=== PATIENT | female | born 1955 | race Caucasian/White ===

== ENCOUNTER → 2017-04-03 | Outpatient (CLI) | payer OTHER ==
[~2017-04-03] MED LIST: ALBU3IS INH; ALBU90OI6 INH; ATOR40TA PO; AZIT500 PO; Ambien5 MG PO; BUDE6HFA INH; DELTASONE20 MG PO; Desyrel50 MG PO; ESCI20 PO; GUAI600T33 PO; IPRAOI; LEVSOD50 PO; LORA.5 PO; LORA2 PO; METPRE4 PO; NICO14TP TOP; Nicorette4 MG BC; Prednisone20 MG PO; ROSU5; SERT25 PO; Synthroid112 MCG PO; TIOT18 INH; TRAZ150T57 PO; TUDORZA PRESS400 MCG IH; TUDORZA PRESS400 MCG INH
[2017-04-03 18:37] LABS: Free Thyroxine 1.46 ng/dL (0.70-1.60)
[2017-04-03 18:43] LABS: Thyroid Stimulating Hormone 2.7 uIU/mL (0.360-4.800)
== END ==
LOC: LAB 09:07 → LAB SHORT 09:07
PROVIDERS: Nurse Practitioner Adult Health
DX: E03.9 Hypothyroidism, unspecified (principal)
CPT/HCPCS: 84439; 84443

== ENCOUNTER → 2017-07-11 | Outpatient (CLI) | payer SELFPAY ==
[~2017-07-11] MED LIST changes: -LORA.5 PO; -Prednisone20 MG PO; -TRAZ150T57 PO
[2017-07-11 19:04] LABS: Free Thyroxine 1.41 ng/dL (0.70-1.60)
[2017-07-11 19:05] LABS: Thyroid Stimulating Hormone 1.55 uIU/mL (0.360-4.800)
== END ==
LOC: LAB SHORT 14:43 → LAB 14:43
PROVIDERS: Nurse Practitioner Adult Health
DX: E03.9 Hypothyroidism, unspecified (principal)
CPT/HCPCS: 84439; 84443

== ENCOUNTER 2018-01-11 15:59 | Emergency (ER) | payer MEDICARE, OTHER ==
[~2018-01-11] VITALS: Ht 160 cm; Wt 77.1 kg
[2018-01-11 16:49] LABS: BASOPHILS ABSOLUTE AUTO 0.04 K/mm3 (0.00-0.23); BASOPHILS PERCENT AUTO 1 % (0-2); EOSINOPHILS ABSOLUTE AUTO 0.05 K/mm3 (0.00-0.68); EOSINOPHILS PERCENT AUTO 1 % (0-6); Hematocrit 41.6 % (33.0-51.0); Hemoglobin 13.9 g/dL (11.5-16.0); IMMATURE GRAN ABSOLUTE AUTO 0.01 K/mm3 (0.00-0.10); IMMATURE GRAN PERCENT AUTO 0 % (0-1); LYMPHOCYTES ABSOLUTE AUTO 1.64 K/mm3 (0.84-5.20); LYMPHOCYTES PERCENT AUTO 21 % (21-46); MONOCYTES ABSOLUTE AUTO 0.58 K/mm3 (0.16-1.47); MONOCYTES PERCENT AUTO 8 % (4-13); Mean Corpuscular HGB 30.4 pg (26.0-34.0); Mean Corpuscular HGB Conc 33.4 g/dL (31.5-36.5); Mean Corpuscular Volume 91 fL (80-100); Mean Platelet Volume 8.9 fL (9.1-12.4); NEUTROPHILS ABSOLUTE AUTO 5.37 K/mm3 (1.96-9.15); NEUTROPHILS PERCENT AUTO 70 % (41-73); Platelet Count 195 K/mm3 (150-400); RDW Coefficient Variation 12.5 % (11.7-14.2); RDW Standard Deviation 41.6 fL (35.1-46.3); Red Blood Cell Count 4.57 M/mm3 (3.80-5.20); White Blood Cell Count 7.69 K/mm3 (4.00-11.30)
[2018-01-11 17:09] LABS: Alanine Aminotransfer (ALT/SGP 34 U/L (12-78); Albumin, Blood 3.7 g/dL (3.4-5.0); Albumin/Globulin Ratio 1.2 (0.8-1.8); Alk Phos 64 U/L (50-136); Anion Gap 5 mmol/L (6-16); Aspartate Aminotrans (AST/SGOT 18 U/L (12-37); Bilirubin, Total 0.5 mg/dL (0.1-1.0); Blood Urea Nitrogen 19 mg/dL (8-24); Bun/Creatinine Ratio 19.1 (12.0-20.0); CO2, Blood 30 mmol/L (21-32); Calcium, Blood 8.4 mg/dL (8.5-10.1); Chloride, Blood 104 mmol/L (98-108); Creatinine, Blood 0.99 mg/dL (0.40-1.00); Globulin, Blood 3.1 g/dL (2.2-4.0); Glomerular Filtration Rate >60 (60-); Glucose, Blood 106 mg/dL (70-99); Potassium, Blood 3.8 mmol/L (3.5-5.5); Sodium, Blood 139 mmol/L (136-145); Total Protein, Blood 6.8 g/dL (6.4-8.2); Troponin I <0.015 ng/mL (0.000-0.040)
[2018-01-11] MEDS ORDERED: Prednisone20 MG PO (18:15)
== END 2018-01-11 19:04 | disposition home or self-care (01) ==
LOC: ER 15:59
PROVIDERS: Emergency Medicine
DX: J44.1 Chronic obstructive pulmonary disease with (acute) exacerbation (principal); E78.00 Pure hypercholesterolemia, unspecified; F41.9 Anxiety disorder, unspecified; F17.200 Nicotine dependence, unspecified, uncomplicated; Z88.5 Allergy status to narcotic agent; Z79.899 Other long term (current) drug therapy; Z79.51 Long term (current) use of inhaled steroids
CPT/HCPCS: 36415; 71046; 80053; 83880; 84484; 85025; 93005; 93010; 94640; 96374; 99285-25; J2930

== ENCOUNTER 2018-02-26 07:40 | Day surgery (SDC) | payer MEDICARE, OTHER ==
[~2018-02-26] VITALS: Ht 160 cm; Wt 78.9 kg
[~2018-02-26 07:40] MED LIST changes: +LORA.5 PO; +Prednisone20 MG PO; +TRAZ150T57 PO
== END 2018-02-26 22:53 | disposition home or self-care (01) ==
LOC: ORSCMMR 07:40 → ORD 08:45 → ORSCMMR 09:15 → ORD 09:15 → ORSCMMR 22:53
PROVIDERS: Surgery
PROC: 0JB00ZX Excision of Scalp Subcutaneous Tissue and Fascia, Open Approach, Diagnostic (ICD-10-PCS; principal; 2018-02-26 09:15)
DX: L72.11 Pilar cyst (principal); J44.9 Chronic obstructive pulmonary disease, unspecified; Z99.81 Dependence on supplemental oxygen; E03.9 Hypothyroidism, unspecified; Z79.899 Other long term (current) drug therapy; F17.210 Nicotine dependence, cigarettes, uncomplicated
CPT/HCPCS: 88305; J1885; J3010; J7120

== ENCOUNTER → 2018-05-13 | Outpatient (CLI) | payer MEDICARE, OTHER ==
[2018-05-13 19:53] LABS: BASOPHILS ABSOLUTE AUTO 0.04 K/mm3 (0.00-0.23); BASOPHILS PERCENT AUTO 1 % (0-2); EOSINOPHILS ABSOLUTE AUTO 0.03 K/mm3 (0.00-0.68); EOSINOPHILS PERCENT AUTO 1 % (0-6); Hematocrit 44.3 % (33.0-51.0); Hemoglobin 14.7 g/dL (11.5-16.0); IMMATURE GRAN ABSOLUTE AUTO 0.01 K/mm3 (0.00-0.10); IMMATURE GRAN PERCENT AUTO 0 % (0-1); LYMPHOCYTES ABSOLUTE AUTO 1.16 K/mm3 (0.84-5.20); LYMPHOCYTES PERCENT AUTO 20 % (21-46); MONOCYTES ABSOLUTE AUTO 0.48 K/mm3 (0.16-1.47); MONOCYTES PERCENT AUTO 8 % (4-13); Mean Corpuscular HGB 29.8 pg (26.0-34.0); Mean Corpuscular HGB Conc 33.2 g/dL (31.5-36.5); Mean Corpuscular Volume 90 fL (80-100); Mean Platelet Volume 9.8 fL (9.1-12.4); NEUTROPHILS ABSOLUTE AUTO 4.18 K/mm3 (1.96-9.15); NEUTROPHILS PERCENT AUTO 71 % (41-73); Platelet Count 219 K/mm3 (150-400); RDW Coefficient Variation 12.1 % (11.7-14.2); RDW Standard Deviation 39.6 fL (35.1-46.3); Red Blood Cell Count 4.94 M/mm3 (3.80-5.20)
[2018-05-13 20:12] LABS: Alanine Aminotransfer (ALT/SGP 24 U/L (12-78); Albumin, Blood 3.9 g/dL (3.4-5.0); Albumin/Globulin Ratio 1.3 (0.8-1.8); Alk Phos 68 U/L (50-136); Anion Gap 6 mmol/L (6-16); Aspartate Aminotrans (AST/SGOT 11 U/L (12-37); Bilirubin, Total 0.7 mg/dL (0.1-1.0); Blood Urea Nitrogen 13 mg/dL (8-24); Bun/Creatinine Ratio 25.2 (12.0-20.0); CHOL/HDL RATIO 2.8; CO2, Blood 30 mmol/L (21-32); Calcium, Blood 8.9 mg/dL (8.5-10.1); Chloride, Blood 104 mmol/L (98-108); Cholesterol 161 mg/dL (50-200); Creatinine, Blood 0.52 mg/dL (0.40-1.00); Free Thyroxine 1.73 ng/dL (0.70-1.60); Globulin, Blood 2.9 g/dL (2.2-4.0); Glomerular Filtration Rate >60 (60-); Glucose, Blood 97 mg/dL (70-99); HDL Cholesterol 57 mg/dL (>39); LDL/HDL RATIO 1.5; Low Density Lipoprotein Chol 86 mg/dL (0-110); Sodium, Blood 140 mmol/L (136-145); Total Protein, Blood 6.8 g/dL (6.4-8.2); Triglycerides 90 mg/dL (30-160); Very Low Density Lipoprot Chol 18 mg/dL (6-32)
[2018-05-13 20:15] LABS: Thyroid Stimulating Hormone 0.243 uIU/mL (0.360-4.800)
[2018-05-14 20:35] LABS: Percent Saturation 47.1 % (15.0-50.0)
== END ==
LOC: LAB 19:26 → LAB SHORT 19:26
PROVIDERS: Nurse Practitioner Family
DX: E03.9 Hypothyroidism, unspecified (principal); D50.9 Iron deficiency anemia, unspecified
CPT/HCPCS: 80053; 80061; 82728; 83540; 83550; 84439; 84443; 85025

== ENCOUNTER 2018-06-27 16:13 | Emergency (ER) | payer MEDICARE, OTHER ==
[~2018-06-27] VITALS: Ht 160 cm; Wt 74.8 kg
[2018-06-27 16:54] LABS: BASOPHILS ABSOLUTE AUTO 0.01 K/mm3 (0.00-0.23); BASOPHILS PERCENT AUTO 0 % (0-2); EOSINOPHILS PERCENT AUTO 0 % (0-6); Hematocrit 41.3 % (33.0-51.0); Hemoglobin 13.5 g/dL (11.5-16.0); IMMATURE GRAN ABSOLUTE AUTO 0.01 K/mm3 (0.00-0.10); IMMATURE GRAN PERCENT AUTO 0 % (0-1); LYMPHOCYTES PERCENT AUTO 7 % (21-46); MONOCYTES ABSOLUTE AUTO 0.12 K/mm3 (0.16-1.47); MONOCYTES PERCENT AUTO 2 % (4-13); Mean Corpuscular HGB 29.6 pg (26.0-34.0); Mean Corpuscular HGB Conc 32.7 g/dL (31.5-36.5); Mean Corpuscular Volume 91 fL (80-100); Mean Platelet Volume 9.3 fL (9.1-12.4); NEUTROPHILS ABSOLUTE AUTO 4.94 K/mm3 (1.96-9.15); NEUTROPHILS PERCENT AUTO 90 % (41-73); Platelet Count 228 K/mm3 (150-400); RDW Coefficient Variation 12.6 % (11.7-14.2); RDW Standard Deviation 41.4 fL (35.1-46.3); Red Blood Cell Count 4.56 M/mm3 (3.80-5.20); White Blood Cell Count 5.48 K/mm3 (4.00-11.30)
[2018-06-27 17:17] LABS: Alanine Aminotransfer (ALT/SGP 22 U/L (12-78); Albumin, Blood 3.6 g/dL (3.4-5.0); Albumin/Globulin Ratio 1.2 (0.8-1.8); Alk Phos 56 U/L (50-136); Anion Gap 8 mmol/L (6-16); Aspartate Aminotrans (AST/SGOT 11 U/L (12-37); Bilirubin, Total 0.3 mg/dL (0.1-1.0); Blood Urea Nitrogen 13 mg/dL (8-24); Bun/Creatinine Ratio 24.5 (12.0-20.0); CO2, Blood 26 mmol/L (21-32); Calcium, Blood 8.9 mg/dL (8.5-10.1); Chloride, Blood 108 mmol/L (98-108); Creatinine, Blood 0.53 mg/dL (0.40-1.00); Globulin, Blood 3.1 g/dL (2.2-4.0); Glomerular Filtration Rate >60 (60-); Glucose, Blood 199 mg/dL (70-99); Potassium, Blood 3.7 mmol/L (3.5-5.5); Sodium, Blood 142 mmol/L (136-145); Total Protein, Blood 6.7 g/dL (6.4-8.2)
== END 2018-06-27 18:30 | disposition home or self-care (01) ==
LOC: ER 16:13
PROVIDERS: Physician Assistant
DX: J44.0 Chronic obstructive pulmonary disease with (acute) lower respiratory infection (principal); J20.9 Acute bronchitis, unspecified; F41.9 Anxiety disorder, unspecified; E03.9 Hypothyroidism, unspecified; E78.5 Hyperlipidemia, unspecified; F17.210 Nicotine dependence, cigarettes, uncomplicated; Z79.899 Other long term (current) drug therapy
CPT/HCPCS: 36415; 71046; 80053; 85025; 93005; 93010; 99284-25

== ENCOUNTER 2018-07-22 17:25 | Inpatient (IN) | payer MEDICARE, OTHER ==
[~2018-07-22] VITALS: Ht 160 cm; Wt 73.9 kg
[~2018-07-22 17:25] MED LIST changes: -LORA.5 PO; +LORA1 PO
[2018-07-22 17:59] LABS: BASOPHILS ABSOLUTE AUTO 0.02 K/mm3 (0.00-0.23); BASOPHILS PERCENT AUTO 0 % (0-2); EOSINOPHILS ABSOLUTE AUTO 0.03 K/mm3 (0.00-0.68); EOSINOPHILS PERCENT AUTO 1 % (0-6); Hematocrit 43.5 % (33.0-51.0); Hemoglobin 14.2 g/dL (11.5-16.0); IMMATURE GRAN ABSOLUTE AUTO 0.01 K/mm3 (0.00-0.10); IMMATURE GRAN PERCENT AUTO 0 % (0-1); LYMPHOCYTES PERCENT AUTO 15 % (21-46); MONOCYTES ABSOLUTE AUTO 0.59 K/mm3 (0.16-1.47); MONOCYTES PERCENT AUTO 11 % (4-13); Mean Corpuscular HGB 29.6 pg (26.0-34.0); Mean Corpuscular HGB Conc 32.6 g/dL (31.5-36.5); Mean Corpuscular Volume 91 fL (80-100); Mean Platelet Volume 9.7 fL (9.1-12.4); NEUTROPHILS ABSOLUTE AUTO 3.78 K/mm3 (1.96-9.15); NEUTROPHILS PERCENT AUTO 72 % (41-73); Platelet Count 154 K/mm3 (150-400); RDW Coefficient Variation 12.9 % (11.7-14.2); RDW Standard Deviation 42.1 fL (35.1-46.3); White Blood Cell Count 5.23 K/mm3 (4.00-11.30)
[2018-07-22 18:25] LABS: Alanine Aminotransfer (ALT/SGP 28 U/L (12-78); Albumin, Blood 3.8 g/dL (3.4-5.0); Albumin/Globulin Ratio 1.2 (0.8-1.8); Alk Phos 63 U/L (50-136); Anion Gap 6 mmol/L (6-16); Aspartate Aminotrans (AST/SGOT 20 U/L (12-37); Bilirubin, Total 0.7 mg/dL (0.1-1.0); Blood Urea Nitrogen 10 mg/dL (8-24); Bun/Creatinine Ratio 18.5 (12.0-20.0); CO2, Blood 30 mmol/L (21-32); Calcium, Blood 8.6 mg/dL (8.5-10.1); Chloride, Blood 105 mmol/L (98-108); Creatinine, Blood 0.54 mg/dL (0.40-1.00); Globulin, Blood 3.2 g/dL (2.2-4.0); Glomerular Filtration Rate >60 (60-); Glucose, Blood 93 mg/dL (70-99); Potassium, Blood 4.1 mmol/L (3.5-5.5); Sodium, Blood 141 mmol/L (136-145)
[2018-07-22 18:26] LABS: Troponin I <0.015 ng/mL (0.000-0.040)
[2018-07-22] MEDS ORDERED: ACET500 PO (20:06)
[2018-07-23 03:29] LABS: Adenovirus Not Detected (NOT DETECT); Bordetella pertussis Not Detected (NOT DETECT); Chlamydophila pneumoniae Not Detected (NOT DETECT); Coronavirus 229E Not Detected (NOT DETECT); Coronavirus HKU1 Not Detected (NOT DETECT); Coronavirus NL63 Not Detected (NOT DETECT); Coronavirus OC43 Not Detected (NOT DETECT); Human Metapneumovirus Not Detected (NOT DETECT); Human Rhinovirus/Enterovirus Detected (NOT DETECT); Influenza A Not Detected (NOT DETECT); Influenza A/2009-H1 Not Detected (NOT DETECT); Influenza A/H1 Not Detected (NOT DETECT); Influenza A/H3 Not Detected (NOT DETECT); Influenza B Not Detected (NOT DETECT); Mycoplasma pneumoniae Not Detected (NOT DETECT); Parainfluenza Virus 1 Not Detected (NOT DETECT); Parainfluenza Virus 2 Not Detected (NOT DETECT); Parainfluenza Virus 3 Not Detected (NOT DETECT); Parainfluenza Virus 4 Not Detected (NOT DETECT); Respiratory Syncytial Virus Not Detected (NOT DETECT)
--- NOTE | 2018-07-23 04:25 | NUR ---
NOC SHIFT SUMMARY PT ADMITTED THIS NIGHT FOR COPD EXACERBATION. SHE HAS COME BACK POSITIVE FOR RHINOVIRUS. SHE IS AAOX4. SHE IS ANXIOUS WHEN SHE IS AWAKE AND HAS HX OF ANXIETY. ON TELE CURRENTLY SR RATE 78 PER LABORER STORES. VSS. SHE IS CURRENTLY SLEEPING LIGHTLY AND APPEARS IN NO ACUTE DISTRESS. WILL CONTINUE TO MONITOR.
[2018-07-23 04:56] LABS: Hematocrit 42.4 % (33.0-51.0); Hemoglobin 13.9 g/dL (11.5-16.0); Mean Corpuscular HGB 29.3 pg (26.0-34.0); Mean Corpuscular HGB Conc 32.8 g/dL (31.5-36.5); Mean Corpuscular Volume 89 fL (80-100); Mean Platelet Volume 9.4 fL (9.1-12.4); Platelet Count 148 K/mm3 (150-400); RDW Coefficient Variation 12.5 % (11.7-14.2); RDW Standard Deviation 41.2 fL (35.1-46.3); Red Blood Cell Count 4.75 M/mm3 (3.80-5.20); White Blood Cell Count 2.83 K/mm3 (4.00-11.30)
[2018-07-23 05:14] LABS: Alanine Aminotransfer (ALT/SGP 28 U/L (12-78); Albumin, Blood 3.6 g/dL (3.4-5.0); Albumin/Globulin Ratio 1.2 (0.8-1.8); Alk Phos 60 U/L (50-136); Anion Gap 7 mmol/L (6-16); Aspartate Aminotrans (AST/SGOT 13 U/L (12-37); Bilirubin, Total 0.5 mg/dL (0.1-1.0); Blood Urea Nitrogen 12 mg/dL (8-24); Bun/Creatinine Ratio 23.6 (12.0-20.0); CO2, Blood 29 mmol/L (21-32); Calcium, Blood 8.8 mg/dL (8.5-10.1); Chloride, Blood 105 mmol/L (98-108); Creatinine, Blood 0.51 mg/dL (0.40-1.00); Globulin, Blood 3.1 g/dL (2.2-4.0); Glomerular Filtration Rate >60 (60-); Glucose, Blood 146 mg/dL (70-99); Potassium, Blood 3.9 mmol/L (3.5-5.5); Sodium, Blood 141 mmol/L (136-145); Total Protein, Blood 6.7 g/dL (6.4-8.2)
--- NOTE | 2018-07-23 08:00 | NUR ---
PT PLEASANT COOP TALKATIVE. DENIES KPAIN. EXPRESSES SOB WITH ANY EXERTION, DIANA TO BATHROOM. NO OTHER CONCERNS AT THIS TIME. H/R REG, NO MURMER NOTED. PER TELE NSR AT 74. LUNGS. LIGHT COARSENESS, EXP WHEEZES T.O. ON 2L O2 AT THIS TIME. BT X4, LAST BM 2 DAYS. VOIDS PER BATHROOM. INDEPENDANT TO SBA IN ROOM. NO OTHER CONCERNS AT THIS TIME. BED IN LOW POSITION, CALL LITE IN REACH, CALLS APPROP
--- NOTE | 2018-07-23 17:02 | NUR ---
PT SOB TO BATHROOM. DID TURN O2 UP TO 3L WHILE AMBULATION, TURNED DOWN TO 2 UPON SITTING. DID WELL. PT SHOWED 93-94% WHEN AT 3L WHEN SITTING DOWN ON BED. FEELS RECOVERED MUCH BETTER. MUCH FASTER. IS TURNED DOWN TO 2L AT REST.
--- NOTE | 2018-07-23 18:55 | NUR ---
PT PLEASANT TODAY. DID C/O SOB WITH TRIPS TO BATHROOM. DID IMPROVE WITH INCREASED O2 TO 3L DURING WALK. THEN TURN DOWN. STATES DID HELP. RECOVERED FASTER. PT DISCOURAGED NOT HEALED YET. NO OTHER CONCERNS AT THIS TIME/ BED IN LOW POSITION, CALL LITE IN REACH, CALLS APPROP
--- NOTE | 2018-07-24 04:15 | NUR ---
SHIFT SUMMARY: PT IS ALERT AND ORIENTED. PT IS CALM AND COOPERATIVE WITH CARE. PT CALLS APPROPRIATELY. PT IS INDEPENDENT IN THE ROOM. PT REPORTS SOB UPON EXERTION, O2 @ 2 L VIA NC KEEPING SATS > 90%. PT DENIES PAIN, NAUSEA, AND VOMITING. PT SLEPT MUCH OF THE NIGHT WHEN NOT DISTURBED. NO ACUTE CHANGES OR COMPLICATIONS THIS SHIFT. BED IN LOW POSITION, CALL LIGHT WITHIN REACH.
[2018-07-24] MEDS ORDERED: PRED20 PO (10:23)
[2018-07-24] MEDS ORDERED: ALBU2.5V5 NEB (10:24)
--- NOTE | 2018-07-24 11:14 | NUR ---
PATIENT DISCHARGE THE PATIENT WAS DISCHARGED HOME WITH HER FRIEND, AFTER DISCHARGE INSTRUCTIONS WERE GIVEN TO THE PATIENT. THE PATIENT LEFT THE HOSPITAL WITHOUT CONCERN OR COMPLAINT.
== END 2018-07-24 11:09 | disposition home or self-care (01) | DRG 189 ==
LOC: ER 17:25 → ERHOLD 20:29 → MEDS 21:50 → ENPENDDIS 07-24 09:42 → MEDS 07-24 11:09
PROVIDERS: Emergency Medicine; ADMIT Internal Medicine
DX: J96.21 Acute and chronic respiratory failure with hypoxia (principal); J44.1 Chronic obstructive pulmonary disease with (acute) exacerbation; J44.0 Chronic obstructive pulmonary disease with (acute) lower respiratory infection; J20.6 Acute bronchitis due to rhinovirus; F41.9 Anxiety disorder, unspecified; Z99.81 Dependence on supplemental oxygen; E03.9 Hypothyroidism, unspecified; E78.5 Hyperlipidemia, unspecified; F17.210 Nicotine dependence, cigarettes, uncomplicated
CPT/HCPCS: 36415; 71046; 80053; 83880; 84145; 84484; 85025; 85027; 87070; 87077; 87185; 87205; 87486; 87581; 87633; 87798; 93005; 93010; 94640; 94664; 94760; 96374; 98960; 99285-25; J1650; J2930

== ENCOUNTER → 2018-08-05 | Outpatient (CLI) | payer MEDICARE, OTHER ==
[~2018-08-05] MED LIST changes: +ACET500 PO; +ALBU2.5V5 NEB; +PRED20 PO
[2018-08-05 18:46] LABS: Free Thyroxine 1.42 ng/dL (0.70-1.60); Thyroid Stimulating Hormone 1.61 uIU/mL (0.360-4.800); Triiodothyronine, Free 2.08 pg/mL (2.18-3.98)
== END ==
LOC: LAB SHORT 17:43 → LAB 17:43
PROVIDERS: Nurse Practitioner Family
DX: E03.9 Hypothyroidism, unspecified (principal)
CPT/HCPCS: 84439; 84443; 84481

== ENCOUNTER → 2018-10-29 | Outpatient (CLI) | payer MEDICARE, OTHER ==
[2018-10-29 17:47] LABS: Free Thyroxine 1.33 ng/dL (0.70-1.60); Thyroid Stimulating Hormone 0.773 uIU/mL (0.360-4.800); Triiodothyronine, Free 2.29 pg/mL (2.18-3.98)
[2018-10-31 05:09] LABS: THYROID PEROXIDASE (TPO) AB 95 IU/mL (0-34)
[2018-10-31 07:08] LABS: TRIIODOTHYRONINE (T3) 81 ng/dL (71-180)
== END ==
LOC: LAB SHORT 16:55 → LAB 16:55
PROVIDERS: Nurse Practitioner Family
DX: E05.90 Thyrotoxicosis, unspecified without thyrotoxic crisis or storm (principal)
CPT/HCPCS: 84439; 84443; 84480; 84481; 86376

== ENCOUNTER → 2019-07-28 | Outpatient (CLI) | payer MEDICARE, OTHER ==
[2019-07-28 19:37] LABS: BASOPHILS ABSOLUTE AUTO 0.02 K/mm3 (0.00-0.23); BASOPHILS PERCENT AUTO 0 % (0-2); EOSINOPHILS ABSOLUTE AUTO 0.01 K/mm3 (0.00-0.68); EOSINOPHILS PERCENT AUTO 0 % (0-6); Hematocrit 44.6 % (33.0-51.0); Hemoglobin 14.7 g/dL (11.5-16.0); IMMATURE GRAN ABSOLUTE AUTO 0.01 K/mm3 (0.00-0.10); IMMATURE GRAN PERCENT AUTO 0 % (0-1); LYMPHOCYTES ABSOLUTE AUTO 1.07 K/mm3 (0.84-5.20); LYMPHOCYTES PERCENT AUTO 16 % (21-46); MONOCYTES ABSOLUTE AUTO 0.45 K/mm3 (0.16-1.47); MONOCYTES PERCENT AUTO 7 % (4-13); Mean Corpuscular HGB 30.2 pg (26.0-34.0); Mean Corpuscular Volume 92 fL (80-100); Mean Platelet Volume 9.8 fL (9.1-12.4); NEUTROPHILS ABSOLUTE AUTO 5.34 K/mm3 (1.96-9.15); NEUTROPHILS PERCENT AUTO 78 % (41-73); Platelet Count 213 K/mm3 (150-400); RDW Coefficient Variation 12.6 % (11.7-14.2); RDW Standard Deviation 42.1 fL (35.1-46.3); Red Blood Cell Count 4.86 M/mm3 (3.80-5.20)
[2019-07-28 20:00] LABS: Alanine Aminotransfer (ALT/SGP 32 U/L (12-78); Albumin, Blood 3.9 g/dL (3.4-5.0); Albumin/Globulin Ratio 1.3 (0.8-1.8); Alk Phos 52 U/L (50-136); Anion Gap 4 mmol/L (6-16); Aspartate Aminotrans (AST/SGOT 14 U/L (12-37); Bilirubin, Total 0.3 mg/dL (0.1-1.0); Blood Urea Nitrogen 13 mg/dL (8-24); Bun/Creatinine Ratio 21.9 (12.0-20.0); CHOL/HDL RATIO 2.5; CO2, Blood 30 mmol/L (21-32); Calcium, Blood 8.9 mg/dL (8.5-10.1); Chloride, Blood 105 mmol/L (98-108); Cholesterol 194 mg/dL (50-200); Creatinine, Blood 0.59 mg/dL (0.40-1.00); Globulin, Blood 3.1 g/dL (2.2-4.0); Glomerular Filtration Rate >60 (60-); Glucose, Blood 54 mg/dL (70-99); HDL Cholesterol 77 mg/dL (>39); LDL/HDL RATIO 1.3; Low Density Lipoprotein Chol 104 mg/dL (0-110); Potassium, Blood 3.6 mmol/L (3.5-5.5); Sodium, Blood 139 mmol/L (136-145); Triglycerides 67 mg/dL (30-160); Very Low Density Lipoprot Chol 13 mg/dL (6-32)
[2019-07-28 20:07] LABS: LDL Direct Measurement 88 mg/dL (0-130)
== END | disposition home or self-care (01) ==
LOC: LAB 17:08 → LAB SHORT 17:08
PROVIDERS: Nurse Practitioner Family
DX: E78.5 Hyperlipidemia, unspecified (principal); I10 Essential (primary) hypertension; E03.9 Hypothyroidism, unspecified
CPT/HCPCS: 80053; 80061; 83721; 84443; 85025

== ENCOUNTER 2019-12-14 17:21 | Emergency (ER) | payer MEDICARE, OTHER ==
[~2019-12-14] VITALS: Ht 160 cm; Wt 72.6 kg
[2019-12-14 18:42] LABS: BASOPHILS ABSOLUTE AUTO 0.05 K/mm3 (0.00-0.23); BASOPHILS PERCENT AUTO 1 % (0-2); EOSINOPHILS ABSOLUTE AUTO 0.07 K/mm3 (0.00-0.68); EOSINOPHILS PERCENT AUTO 1 % (0-6); Hematocrit 43.5 % (33.0-51.0); Hemoglobin 14.4 g/dL (11.5-16.0); IMMATURE GRAN ABSOLUTE AUTO 0.02 K/mm3 (0.00-0.10); IMMATURE GRAN PERCENT AUTO 0 % (0-1); LYMPHOCYTES ABSOLUTE AUTO 1.42 K/mm3 (0.84-5.20); LYMPHOCYTES PERCENT AUTO 18 % (21-46); MONOCYTES ABSOLUTE AUTO 0.63 K/mm3 (0.16-1.47); MONOCYTES PERCENT AUTO 8 % (4-13); Mean Corpuscular HGB 29.3 pg (26.0-34.0); Mean Corpuscular HGB Conc 33.1 g/dL (31.5-36.5); Mean Corpuscular Volume 88 fL (80-100); Mean Platelet Volume 9.3 fL (9.1-12.4); NEUTROPHILS ABSOLUTE AUTO 5.79 K/mm3 (1.96-9.15); NEUTROPHILS PERCENT AUTO 73 % (41-73); Platelet Count 203 K/mm3 (150-400); RDW Coefficient Variation 12.6 % (11.7-14.2); RDW Standard Deviation 41.1 fL (35.1-46.3); Red Blood Cell Count 4.92 M/mm3 (3.80-5.20); White Blood Cell Count 7.98 K/mm3 (4.00-11.30)
[2019-12-14 19:08] LABS: Magnesium, Blood 2.1 mg/dL (1.6-2.4); Troponin I <0.015 ng/mL (0.000-0.040)
[2019-12-14 19:17] LABS: Alanine Aminotransfer (ALT/SGP 31 U/L (12-78); Albumin/Globulin Ratio 1.2 (0.8-1.8); Alk Phos 60 U/L (50-136); Anion Gap 3 mmol/L (6-16); Aspartate Aminotrans (AST/SGOT 22 U/L (12-37); Bilirubin, Total 0.4 mg/dL (0.1-1.0); Blood Urea Nitrogen 13 mg/dL (8-24); Bun/Creatinine Ratio 26.4 (12.0-20.0); CO2, Blood 30 mmol/L (21-32); Calcium, Blood 9.2 mg/dL (8.5-10.1); Chloride, Blood 107 mmol/L (98-108); Creatinine, Blood 0.49 mg/dL (0.40-1.00); Globulin, Blood 3.3 g/dL (2.2-4.0); Glomerular Filtration Rate >60 (60-); Glucose, Blood 105 mg/dL (70-99); Potassium, Blood 4.5 mmol/L (3.5-5.5); Sodium, Blood 140 mmol/L (136-145); Total Protein, Blood 7.3 g/dL (6.4-8.2)
[2019-12-14] MEDS ORDERED: Prednisone20 MG PO (21:39)
[2019-12-14] MEDS ORDERED: PRED5 PO (21:53)
== END 2019-12-14 22:03 | disposition home or self-care (01) ==
LOC: ER 17:21
PROVIDERS: Emergency Medicine
DX: J44.1 Chronic obstructive pulmonary disease with (acute) exacerbation (principal); J44.9 Chronic obstructive pulmonary disease, unspecified; F41.9 Anxiety disorder, unspecified; E78.00 Pure hypercholesterolemia, unspecified; F17.200 Nicotine dependence, unspecified, uncomplicated; Z79.51 Long term (current) use of inhaled steroids; Z79.52 Long term (current) use of systemic steroids; Z79.899 Other long term (current) drug therapy; Z20.828 Contact with and (suspected) exposure to other viral communicable diseases
CPT/HCPCS: 71045; 80053; 83735; 83880; 84484; 85025; 93005; 93010; 99285-25; J7512; U0003

== ENCOUNTER → 2019-12-30 | Outpatient (CLI) | payer MEDICARE, OTHER ==
[~2019-12-30] MED LIST changes: +PRED5 PO
[2019-12-30 19:32] LABS: Free Thyroxine 1.29 ng/dL (0.70-1.60); Thyroid Stimulating Hormone 2.05 uIU/mL (0.360-4.800)
== END | disposition home or self-care (01) ==
LOC: LAB SHORT 17:11 → LAB 17:11
PROVIDERS: Nurse Practitioner Family
DX: E03.9 Hypothyroidism, unspecified (principal)
CPT/HCPCS: 84439; 84443

== ENCOUNTER → 2020-06-30 | Outpatient (CLI) | payer MEDICARE, OTHER ==
[2020-06-30 18:56] LABS: Alanine Aminotransfer (ALT/SGP 29 U/L (12-78); Albumin/Globulin Ratio 1.2 (0.8-1.8); Alk Phos 56 U/L (50-136); Anion Gap 2 mmol/L (6-16); Aspartate Aminotrans (AST/SGOT 15 U/L (12-37); Bilirubin, Total 0.4 mg/dL (0.1-1.0); Blood Urea Nitrogen 14 mg/dL (8-24); Bun/Creatinine Ratio 23.5 (12.0-20.0); CO2, Blood 31 mmol/L (21-32); Calcium, Blood 9.3 mg/dL (8.5-10.1); Chloride, Blood 103 mmol/L (98-108); Globulin, Blood 3.2 g/dL (2.2-4.0); Glomerular Filtration Rate >60 (60-); Glucose, Blood 137 mg/dL (70-99); Potassium, Blood 4.2 mmol/L (3.5-5.5); Sodium, Blood 136 mmol/L (136-145); Total Protein, Blood 7.2 g/dL (6.4-8.2)
[2020-07-01 12:24] LABS: BASOPHILS ABSOLUTE AUTO 0.04 K/mm3 (0.00-0.23); BASOPHILS PERCENT AUTO 1 % (0-2); EOSINOPHILS ABSOLUTE AUTO 0.02 K/mm3 (0.00-0.68); EOSINOPHILS PERCENT AUTO 0 % (0-6); Hematocrit 44.6 % (33.0-51.0); Hemoglobin 14.9 g/dL (11.5-16.0); IMMATURE GRAN ABSOLUTE AUTO 0.02 K/mm3 (0.00-0.10); IMMATURE GRAN PERCENT AUTO 0 % (0-1); LYMPHOCYTES ABSOLUTE AUTO 1.18 K/mm3 (0.84-5.20); LYMPHOCYTES PERCENT AUTO 16 % (21-46); MONOCYTES ABSOLUTE AUTO 0.45 K/mm3 (0.16-1.47); MONOCYTES PERCENT AUTO 6 % (4-13); Mean Corpuscular HGB 29.3 pg (26.0-34.0); Mean Corpuscular HGB Conc 33.4 g/dL (31.5-36.5); Mean Corpuscular Volume 88 fL (80-100); NEUTROPHILS ABSOLUTE AUTO 5.67 K/mm3 (1.96-9.15); NEUTROPHILS PERCENT AUTO 77 % (41-73); Platelet Count 220 K/mm3 (150-400); RDW Coefficient Variation 12.9 % (11.7-14.2); RDW Standard Deviation 41.7 fL (35.1-46.3); Red Blood Cell Count 5.08 M/mm3 (3.80-5.20); White Blood Cell Count 7.38 K/mm3 (4.00-11.30)
== END | disposition home or self-care (01) ==
LOC: LAB SHORT 16:46
PROVIDERS: Nurse Practitioner Family
DX: Z00.00 Encounter for general adult medical examination without abnormal findings (principal); E03.9 Hypothyroidism, unspecified; J44.9 Chronic obstructive pulmonary disease, unspecified; I10 Essential (primary) hypertension
CPT/HCPCS: 80053; 84443; 85025

== ENCOUNTER 2020-09-13 10:25 | Emergency (ER) | payer MEDICARE, OTHER ==
[~2020-09-13] VITALS: Ht 160 cm; Wt 72.6 kg
[2020-09-13 11:00] LABS: PCO2 Arterial 50.3 mmHg (35-45); PO2 Arterial 104 mmHg (80-100); pH Blood Arterial 7.39 (7.35-7.45)
[2020-09-13] MEDS ORDERED: AZIT250 PO (11:11)
[2020-09-13 11:25] LABS: Alanine Aminotransfer (ALT/SGP 18 U/L (12-78); Albumin, Blood 3.9 g/dL (3.4-5.0); Albumin/Globulin Ratio 1.3 (0.8-1.8); Alk Phos 46 U/L (50-136); Anion Gap 4 mmol/L (6-16); Aspartate Aminotrans (AST/SGOT 10 U/L (12-37); Bilirubin, Total 0.5 mg/dL (0.1-1.0); Blood Urea Nitrogen 10 mg/dL (8-24); Bun/Creatinine Ratio 15.6 (12.0-20.0); CO2, Blood 29 mmol/L (21-32); Calcium, Blood 8.8 mg/dL (8.5-10.1); Chloride, Blood 107 mmol/L (98-108); Creatinine, Blood 0.64 mg/dL (0.40-1.00); Globulin, Blood 2.9 g/dL (2.2-4.0); Glomerular Filtration Rate >60 (60-); Glucose, Blood 124 mg/dL (70-99); Potassium, Blood 3.9 mmol/L (3.5-5.5); Sodium, Blood 140 mmol/L (136-145); Total Protein, Blood 6.8 g/dL (6.4-8.2); Troponin I <0.015 ng/mL (0.000-0.040)
[2020-09-13 11:28] LABS: BASOPHILS ABSOLUTE AUTO 0.02 K/mm3 (0.00-0.23); BASOPHILS PERCENT AUTO 0 % (0-2); EOSINOPHILS ABSOLUTE AUTO 0.02 K/mm3 (0.00-0.68); EOSINOPHILS PERCENT AUTO 0 % (0-6); Hematocrit 44.5 % (33.0-51.0); Hemoglobin 14.7 g/dL (11.5-16.0); IMMATURE GRAN ABSOLUTE AUTO 0.02 K/mm3 (0.00-0.10); IMMATURE GRAN PERCENT AUTO 0 % (0-1); LYMPHOCYTES PERCENT AUTO 10 % (21-46); MONOCYTES ABSOLUTE AUTO 0.48 K/mm3 (0.16-1.47); MONOCYTES PERCENT AUTO 6 % (4-13); Mean Corpuscular HGB 29.9 pg (26.0-34.0); Mean Corpuscular Volume 91 fL (80-100); Mean Platelet Volume 9.1 fL (9.1-12.4); NEUTROPHILS ABSOLUTE AUTO 6.89 K/mm3 (1.96-9.15); NEUTROPHILS PERCENT AUTO 84 % (41-73); Platelet Count 179 K/mm3 (150-400); RDW Coefficient Variation 12.6 % (11.7-14.2); RDW Standard Deviation 42.1 fL (35.1-46.3); Red Blood Cell Count 4.91 M/mm3 (3.80-5.20); White Blood Cell Count 8.23 K/mm3 (4.00-11.30)
== END 2020-09-13 13:52 | disposition home or self-care (01) ==
LOC: ER 10:25
PROVIDERS: Emergency Medicine
DX: J44.1 Chronic obstructive pulmonary disease with (acute) exacerbation (principal); F41.9 Anxiety disorder, unspecified; E78.00 Pure hypercholesterolemia, unspecified; E03.9 Hypothyroidism, unspecified; Z88.1 Allergy status to other antibiotic agents; Z79.52 Long term (current) use of systemic steroids; Z91.19 Patient's noncompliance with other medical treatment and regimen; Z79.899 Other long term (current) drug therapy
CPT/HCPCS: 36600; 71045; 80053; 82803; 83880; 84484; 85025; 93005; 93010; 94660; 96374; 96375; 99285-25; J2060; J2930

== ENCOUNTER 2020-11-11 14:27 | Emergency (ER) | payer OTHER ==
[~2020-11-11] VITALS: Ht 160 cm; Wt 70.3 kg
[~2020-11-11 14:27] MED LIST changes: +AZIT250 PO
[2020-11-11 14:57] LABS: BASOPHILS ABSOLUTE AUTO 0.03 K/mm3 (0.00-0.23); BASOPHILS PERCENT AUTO 0 % (0-2); EOSINOPHILS ABSOLUTE AUTO 0.01 K/mm3 (0.00-0.68); EOSINOPHILS PERCENT AUTO 0 % (0-6); Hematocrit 43.1 % (33.0-51.0); Hemoglobin 14.8 g/dL (11.5-16.0); IMMATURE GRAN ABSOLUTE AUTO 0.01 K/mm3 (0.00-0.10); IMMATURE GRAN PERCENT AUTO 0 % (0-1); LYMPHOCYTES ABSOLUTE AUTO 0.83 K/mm3 (0.84-5.20); LYMPHOCYTES PERCENT AUTO 12 % (21-46); MONOCYTES ABSOLUTE AUTO 0.35 K/mm3 (0.16-1.47); MONOCYTES PERCENT AUTO 5 % (4-13); Mean Corpuscular HGB 29.7 pg (26.0-34.0); Mean Corpuscular HGB Conc 34.3 g/dL (31.5-36.5); Mean Corpuscular Volume 87 fL (80-100); Mean Platelet Volume 8.8 fL (9.1-12.4); NEUTROPHILS ABSOLUTE AUTO 5.56 K/mm3 (1.96-9.15); NEUTROPHILS PERCENT AUTO 82 % (41-73); Platelet Count 228 K/mm3 (150-400); RDW Coefficient Variation 12.9 % (11.7-14.2); RDW Standard Deviation 40.6 fL (35.1-46.3); Red Blood Cell Count 4.98 M/mm3 (3.80-5.20); White Blood Cell Count 6.79 K/mm3 (4.00-11.30)
[2020-11-11 15:15] LABS: Source, Urine Clean Catch
[2020-11-11 15:25] LABS: Appearance, Urine Clear (Clear); Bilirubin, Urine Neg (Neg); Blood, Urine Neg (Neg); Color, Urine Yellow (P-Yellow); Glucose Qualitative, Urine Neg (Neg); Ketones, Urine 3+ (Neg); Leukocyte Esterase, Urine Neg (Neg); Nitrite, Urine Neg (Neg); Protein, Urine Neg (Neg); Urobilinogen, Urine NORM (Normal)
[2020-11-11 15:31] LABS: Alanine Aminotransfer (ALT/SGP 29 U/L (12-78); Albumin/Globulin Ratio 1.4 (0.8-1.8); Alk Phos 40 U/L (50-136); Anion Gap 8 mmol/L (6-16); Aspartate Aminotrans (AST/SGOT 15 U/L (12-37); Bilirubin, Total 0.7 mg/dL (0.1-1.0); Blood Urea Nitrogen 4 mg/dL (8-24); Bun/Creatinine Ratio 7.5 (12.0-20.0); CO2, Blood 24 mmol/L (21-32); Calcium, Blood 8.9 mg/dL (8.5-10.1); Chloride, Blood 103 mmol/L (98-108); Creatinine, Blood 0.53 mg/dL (0.40-1.00); Globulin, Blood 2.9 g/dL (2.2-4.0); Glomerular Filtration Rate >60 (60-); Glucose, Blood 100 mg/dL (70-99); Potassium, Blood 3.9 mmol/L (3.5-5.5); Sodium, Blood 135 mmol/L (136-145); Total Protein, Blood 6.9 g/dL (6.4-8.2)
== END 2020-11-11 16:40 | disposition home or self-care (01) ==
LOC: ER 14:27
PROVIDERS: Emergency Medicine Emergency Medical Services
DX: K52.9 Noninfective gastroenteritis and colitis, unspecified (principal); J44.9 Chronic obstructive pulmonary disease, unspecified; E03.9 Hypothyroidism, unspecified; F17.210 Nicotine dependence, cigarettes, uncomplicated; Z79.899 Other long term (current) drug therapy
CPT/HCPCS: 36415; 71045; 74176; 80053; 81003; 83690; 85025; 99284-25

== ENCOUNTER → 2020-12-06 | Outpatient (CLI) | payer MEDICARE, OTHER | END | disposition home or self-care (01) | LOC: LAB SHORT 14:10 | DX: H05.229 Edema of unspecified orbit (principal) | CPT/HCPCS: 84443 ==

== ENCOUNTER 2021-03-10 12:09 | Emergency (ER) | payer OTHER, MEDICARE ==
[~2021-03-10] VITALS: Ht 160 cm; Wt 65.8 kg
[2021-03-10 14:07] LABS: BASOPHILS ABSOLUTE AUTO 0.02 K/mm3 (0.00-0.23); BASOPHILS PERCENT AUTO 0 % (0-2); EOSINOPHILS ABSOLUTE AUTO 0.03 K/mm3 (0.00-0.68); EOSINOPHILS PERCENT AUTO 0 % (0-6); Hematocrit 41.3 % (33.0-51.0); Hemoglobin 13.8 g/dL (11.5-16.0); IMMATURE GRAN ABSOLUTE AUTO 0.01 K/mm3 (0.00-0.10); IMMATURE GRAN PERCENT AUTO 0 % (0-1); LYMPHOCYTES PERCENT AUTO 11 % (21-46); MONOCYTES PERCENT AUTO 6 % (4-13); Mean Corpuscular HGB 29.7 pg (26.0-34.0); Mean Corpuscular HGB Conc 33.4 g/dL (31.5-36.5); Mean Corpuscular Volume 89 fL (80-100); Mean Platelet Volume 9.7 fL (9.1-12.4); NEUTROPHILS ABSOLUTE AUTO 5.77 K/mm3 (1.96-9.15); NEUTROPHILS PERCENT AUTO 82 % (41-73); Platelet Count 180 K/mm3 (150-400); RDW Coefficient Variation 12.7 % (11.7-14.2); RDW Standard Deviation 41.2 fL (35.1-46.3); Red Blood Cell Count 4.64 M/mm3 (3.80-5.20); White Blood Cell Count 7.03 K/mm3 (4.00-11.30)
[2021-03-10 14:56] LABS: Alanine Aminotransfer (ALT/SGP 23 U/L (12-78); Albumin, Blood 3.8 g/dL (3.4-5.0); Albumin/Globulin Ratio 1.3 (0.8-1.8); Alk Phos 50 U/L (50-136); Anion Gap 3 mmol/L (6-16); Aspartate Aminotrans (AST/SGOT 20 U/L (12-37); Bilirubin, Total 0.6 mg/dL (0.1-1.0); Blood Urea Nitrogen 7 mg/dL (8-24); Bun/Creatinine Ratio 17.7 (12.0-20.0); CO2, Blood 29 mmol/L (21-32); Calcium, Blood 9.2 mg/dL (8.5-10.1); Chloride, Blood 104 mmol/L (98-108); Globulin, Blood 2.9 g/dL (2.2-4.0); Glomerular Filtration Rate >60 (60-); Glucose, Blood 112 mg/dL (70-99); Potassium, Blood 4.3 mmol/L (3.5-5.5); Sodium, Blood 136 mmol/L (136-145); Total Protein, Blood 6.7 g/dL (6.4-8.2); Troponin I <0.015 ng/mL (0.000-0.040)
== END 2021-03-10 14:32 | disposition left against medical advice (07) ==
LOC: ER 12:09
PROVIDERS: Physician Assistant
DX: R07.2 Precordial pain (principal); Z53.21 Procedure and treatment not carried out due to patient leaving prior to being seen by health care provider
CPT/HCPCS: 36415; 70450; 71046; 80053; 83690; 83880; 84484; 85025; 93005; 93010

== ENCOUNTER 2021-04-19 17:00 | Emergency (ER) | payer MEDICARE, OTHER ==
[~2021-04-19] VITALS: Ht 160 cm; Wt 74.8 kg
[2021-04-19 17:26] LABS: BASOPHILS ABSOLUTE AUTO 0.03 K/mm3 (0.00-0.23); BASOPHILS PERCENT AUTO 0 % (0-2); EOSINOPHILS ABSOLUTE AUTO 0.02 K/mm3 (0.00-0.68); EOSINOPHILS PERCENT AUTO 0 % (0-6); Hematocrit 41.1 % (33.0-51.0); Hemoglobin 14.1 g/dL (11.5-16.0); IMMATURE GRAN ABSOLUTE AUTO 0.01 K/mm3 (0.00-0.10); IMMATURE GRAN PERCENT AUTO 0 % (0-1); LYMPHOCYTES ABSOLUTE AUTO 0.96 K/mm3 (0.84-5.20); LYMPHOCYTES PERCENT AUTO 13 % (21-46); MONOCYTES ABSOLUTE AUTO 0.43 K/mm3 (0.16-1.47); MONOCYTES PERCENT AUTO 6 % (4-13); Mean Corpuscular HGB 30.5 pg (26.0-34.0); Mean Corpuscular HGB Conc 34.3 g/dL (31.5-36.5); Mean Corpuscular Volume 89 fL (80-100); Mean Platelet Volume 9.2 fL (9.1-12.4); NEUTROPHILS ABSOLUTE AUTO 5.87 K/mm3 (1.96-9.15); NEUTROPHILS PERCENT AUTO 80 % (41-73); Platelet Count 212 K/mm3 (150-400); RDW Standard Deviation 39.1 fL (35.1-46.3); Red Blood Cell Count 4.63 M/mm3 (3.80-5.20); White Blood Cell Count 7.32 K/mm3 (4.00-11.30)
[2021-04-19 17:44] LABS: Alanine Aminotransfer (ALT/SGP 20 U/L (12-78); Albumin, Blood 3.8 g/dL (3.4-5.0); Albumin/Globulin Ratio 1.3 (0.8-1.8); Alk Phos 56 U/L (50-136); Anion Gap 3 mmol/L (6-16); Aspartate Aminotrans (AST/SGOT 12 U/L (12-37); Bilirubin, Total 0.4 mg/dL (0.1-1.0); Blood Urea Nitrogen 12 mg/dL (8-24); CO2, Blood 29 mmol/L (21-32); Calcium, Blood 9.3 mg/dL (8.5-10.1); Chloride, Blood 106 mmol/L (98-108); Creatinine, Blood 0.52 mg/dL (0.40-1.00); Globulin, Blood 2.9 g/dL (2.2-4.0); Glomerular Filtration Rate >60 (60-); Glucose, Blood 112 mg/dL (70-99); Sodium, Blood 138 mmol/L (136-145); Total Protein, Blood 6.7 g/dL (6.4-8.2)
[2021-04-19] MEDS ORDERED: PRED20 PO (19:49)
== END 2021-04-19 20:20 | disposition home or self-care (01) ==
LOC: ER 17:00
PROVIDERS: Physician Assistant
DX: J20.9 Acute bronchitis, unspecified (principal); J42 Unspecified chronic bronchitis; E78.00 Pure hypercholesterolemia, unspecified; F17.200 Nicotine dependence, unspecified, uncomplicated
CPT/HCPCS: 36415; 71046; 80053; 84484; 85025; 93005; 93010; 99285-25; J7512

== ENCOUNTER 2021-06-11 12:06 | Emergency (ER) | payer MEDICARE, OTHER ==
[~2021-06-11] VITALS: Ht 160 cm; Wt 70.3 kg
[2021-06-11 12:39] LABS: BASOPHILS ABSOLUTE AUTO 0.02 K/mm3 (0.00-0.23); BASOPHILS PERCENT AUTO 0 % (0-2); EOSINOPHILS ABSOLUTE AUTO 0.02 K/mm3 (0.00-0.68); EOSINOPHILS PERCENT AUTO 0 % (0-6); Hematocrit 42.7 % (33.0-51.0); Hemoglobin 14.2 g/dL (11.5-16.0); IMMATURE GRAN ABSOLUTE AUTO 0.02 K/mm3 (0.00-0.10); IMMATURE GRAN PERCENT AUTO 0 % (0-1); LYMPHOCYTES ABSOLUTE AUTO 0.53 K/mm3 (0.84-5.20); LYMPHOCYTES PERCENT AUTO 7 % (21-46); MONOCYTES PERCENT AUTO 3 % (4-13); Mean Corpuscular HGB Conc 33.3 g/dL (31.5-36.5); Mean Corpuscular Volume 90 fL (80-100); Mean Platelet Volume 9.1 fL (9.1-12.4); NEUTROPHILS ABSOLUTE AUTO 7.31 K/mm3 (1.96-9.15); NEUTROPHILS PERCENT AUTO 90 % (41-73); Platelet Count 186 K/mm3 (150-400); RDW Coefficient Variation 12.1 % (11.7-14.2); Red Blood Cell Count 4.73 M/mm3 (3.80-5.20)
[2021-06-11 12:55] LABS: Alanine Aminotransfer (ALT/SGP 21 U/L (12-78); Albumin, Blood 3.9 g/dL (3.4-5.0); Albumin/Globulin Ratio 1.3 (0.8-1.8); Alk Phos 51 U/L (50-136); Anion Gap 4 mmol/L (6-16); Aspartate Aminotrans (AST/SGOT 10 U/L (12-37); Bilirubin, Total 0.5 mg/dL (0.1-1.0); Blood Urea Nitrogen 12 mg/dL (8-24); Bun/Creatinine Ratio 25.2 (12.0-20.0); CO2, Blood 33 mmol/L (21-32); Chloride, Blood 105 mmol/L (98-108); Creatinine, Blood 0.48 mg/dL (0.40-1.00); Globulin, Blood 3.1 g/dL (2.2-4.0); Glomerular Filtration Rate >60 (60-); Glucose, Blood 129 mg/dL (70-99); Sodium, Blood 142 mmol/L (136-145)
== END 2021-06-11 15:53 | disposition home or self-care (01) ==
LOC: ER 12:06
PROVIDERS: Physician Assistant
DX: J44.9 Chronic obstructive pulmonary disease, unspecified (principal); E78.00 Pure hypercholesterolemia, unspecified; E03.9 Hypothyroidism, unspecified; F17.210 Nicotine dependence, cigarettes, uncomplicated; Z79.899 Other long term (current) drug therapy; Z79.52 Long term (current) use of systemic steroids
CPT/HCPCS: 36415; 71045; 80053; 83605; 83880; 84484; 85025; 93005; 93010; 94640; 94644; 94664; J2930

== ENCOUNTER 2021-12-29 11:52 | Emergency (ER) | payer MEDICARE, OTHER ==
[~2021-12-29] VITALS: Ht 160 cm; Wt 69.4 kg
[2021-12-29 12:34] LABS: BASOPHILS ABSOLUTE AUTO 0.02 K/mm3 (0.00-0.23); BASOPHILS PERCENT AUTO 0 % (0-2); EOSINOPHILS ABSOLUTE AUTO 0.01 K/mm3 (0.00-0.68); EOSINOPHILS PERCENT AUTO 0 % (0-6); Hematocrit 37.7 % (33.0-51.0); Hemoglobin 12.7 g/dL (11.5-16.0); IMMATURE GRAN ABSOLUTE AUTO 0.02 K/mm3 (0.00-0.10); IMMATURE GRAN PERCENT AUTO 0 % (0-1); LYMPHOCYTES ABSOLUTE AUTO 0.72 K/mm3 (0.84-5.20); LYMPHOCYTES PERCENT AUTO 9 % (21-46); MONOCYTES ABSOLUTE AUTO 0.65 K/mm3 (0.16-1.47); MONOCYTES PERCENT AUTO 8 % (4-13); Mean Corpuscular HGB 30.6 pg (26.0-34.0); Mean Corpuscular HGB Conc 33.7 g/dL (31.5-36.5); Mean Corpuscular Volume 91 fL (80-100); Mean Platelet Volume 9.8 fL (9.1-12.4); NEUTROPHILS ABSOLUTE AUTO 6.69 K/mm3 (1.96-9.15); NEUTROPHILS PERCENT AUTO 83 % (41-73); Platelet Count 142 K/mm3 (150-400); RDW Standard Deviation 39.9 fL (35.1-46.3); Red Blood Cell Count 4.15 M/mm3 (3.80-5.20); White Blood Cell Count 8.11 K/mm3 (4.00-11.30)
[2021-12-29 12:51] LABS: Albumin, Blood 3.3 g/dL (3.4-5.0); Bilirubin, Total 0.5 mg/dL (0.1-1.0); Bun/Creatinine Ratio 20.6 (12.0-20.0); Calcium, Blood 9.2 mg/dL (8.5-10.1); Creatinine, Blood 0.39 mg/dL (0.40-1.00); Globulin, Blood 3.3 g/dL (2.2-4.0); Total Protein, Blood 6.6 g/dL (6.4-8.2)
[2021-12-29 13:26] LABS: Source, Urine Clean Catch
[2021-12-29 13:36] LABS: Appearance, Urine Clear (Clear); Bilirubin, Urine Neg (Neg); Blood, Urine Neg (Neg); Color, Urine Yellow (P-Yellow); Glucose Qualitative, Urine Neg (Neg); Ketones, Urine 2+ (Neg); Leukocyte Esterase, Urine Neg (Neg); Nitrite, Urine Neg (Neg); Protein, Urine Neg (Neg); Urobilinogen, Urine NORM (Normal)
[2021-12-29] MEDS ORDERED: ESCI10 PO (14:30)
[2021-12-29] MEDS ORDERED: TRAZ150T57 PO (14:31)
[2021-12-29] MEDS ORDERED: GUAI600T33 PO (14:32)
[2021-12-29] MEDS ORDERED: MORP30 PO (14:33)
[2021-12-29] MEDS ORDERED: ONDA4ODT MM (16:24)
[2021-12-29] MEDS ORDERED: HYDR1TAB94 PO (16:24)
[2021-12-29] MEDS ORDERED: AMOCLA875 PO (16:24)
== END 2021-12-29 16:45 | disposition home or self-care (01) ==
LOC: ER 11:52
PROVIDERS: Physician Assistant
DX: K57.32 Diverticulitis of large intestine without perforation or abscess without bleeding (principal); J44.9 Chronic obstructive pulmonary disease, unspecified; Z79.899 Other long term (current) drug therapy; F17.200 Nicotine dependence, unspecified, uncomplicated
CPT/HCPCS: 71046; 74177; 80053; 81003; 83690; 84484; 85025; 93005; 93010; 96374-59; 99284-25; A9270; J2060; Q9967

== ENCOUNTER 2022-01-02 17:21 | Emergency (ER) | payer MEDICARE, OTHER ==
[~2022-01-02] VITALS: Ht 160 cm; Wt 69.0 kg
[~2022-01-02 17:21] MED LIST changes: +AMOCLA875 PO; +ESCI10 PO; +HYDR1TAB94 PO; +MORP30 PO; +ONDA4ODT MM
[2022-01-02 18:10] LABS: BASOPHILS ABSOLUTE AUTO 0.02 K/mm3 (0.00-0.23); BASOPHILS PERCENT AUTO 0 % (0-2); EOSINOPHILS ABSOLUTE AUTO 0.04 K/mm3 (0.00-0.68); EOSINOPHILS PERCENT AUTO 1 % (0-6); Hematocrit 40.1 % (33.0-51.0); Hemoglobin 13.7 g/dL (11.5-16.0); IMMATURE GRAN ABSOLUTE AUTO 0.01 K/mm3 (0.00-0.10); IMMATURE GRAN PERCENT AUTO 0 % (0-1); LYMPHOCYTES ABSOLUTE AUTO 0.79 K/mm3 (0.84-5.20); LYMPHOCYTES PERCENT AUTO 14 % (21-46); MONOCYTES ABSOLUTE AUTO 0.46 K/mm3 (0.16-1.47); MONOCYTES PERCENT AUTO 8 % (4-13); Mean Corpuscular HGB 30.3 pg (26.0-34.0); Mean Corpuscular HGB Conc 34.2 g/dL (31.5-36.5); Mean Corpuscular Volume 89 fL (80-100); Mean Platelet Volume 9.6 fL (9.1-12.4); NEUTROPHILS ABSOLUTE AUTO 4.41 K/mm3 (1.96-9.15); NEUTROPHILS PERCENT AUTO 77 % (41-73); Platelet Count 191 K/mm3 (150-400); RDW Coefficient Variation 11.7 % (11.7-14.2); RDW Standard Deviation 37.6 fL (35.1-46.3); Red Blood Cell Count 4.52 M/mm3 (3.80-5.20); White Blood Cell Count 5.73 K/mm3 (4.00-11.30)
[2022-01-02 18:50] LABS: Albumin, Blood 3.6 g/dL (3.4-5.0); Albumin/Globulin Ratio 1.2 (0.8-1.8); Bilirubin, Total 0.4 mg/dL (0.1-1.0); Bun/Creatinine Ratio 15.4 (12.0-20.0); Calcium, Blood 9.1 mg/dL (8.5-10.1); Creatinine, Blood 0.39 mg/dL (0.40-1.00); Globulin, Blood 3.1 g/dL (2.2-4.0); Potassium, Blood 3.7 mmol/L (3.5-5.5); Total Protein, Blood 6.7 g/dL (6.4-8.2)
== END 2022-01-02 21:07 | disposition home or self-care (01) ==
LOC: ER 17:21
PROVIDERS: Physician Assistant
DX: K57.92 Diverticulitis of intestine, part unspecified, without perforation or abscess without bleeding (principal); J44.9 Chronic obstructive pulmonary disease, unspecified; F17.210 Nicotine dependence, cigarettes, uncomplicated
CPT/HCPCS: 36415; 80053; 83690; 85025

== ENCOUNTER 2022-05-26 00:35 | Inpatient (IN) | payer MEDICARE, OTHER ==
[~2022-05-26] VITALS: Ht 162.6 cm; Wt 65.5 kg
[2022-05-26 00:49] LABS: BASOPHILS PERCENT AUTO 0 % (0-2); EOSINOPHILS PERCENT AUTO 0 % (0-6); Hematocrit 43.3 % (33.0-51.0); Hemoglobin 13.8 g/dL (11.5-16.0); IMMATURE GRAN ABSOLUTE AUTO 0.04 K/mm3 (0.00-0.10); IMMATURE GRAN PERCENT AUTO 1 % (0-1); LYMPHOCYTES ABSOLUTE AUTO 0.42 K/mm3 (0.84-5.20); LYMPHOCYTES PERCENT AUTO 6 % (21-46); MONOCYTES ABSOLUTE AUTO 0.79 K/mm3 (0.16-1.47); MONOCYTES PERCENT AUTO 12 % (4-13); Mean Corpuscular HGB 30.2 pg (26.0-34.0); Mean Corpuscular HGB Conc 31.9 g/dL (31.5-36.5); Mean Corpuscular Volume 95 fL (80-100); Mean Platelet Volume 9.8 fL (9.1-12.4); NEUTROPHILS ABSOLUTE AUTO 5.38 K/mm3 (1.96-9.15); NEUTROPHILS PERCENT AUTO 81 % (41-73); Platelet Count 139 K/mm3 (150-400); RDW Coefficient Variation 12.5 % (11.7-14.2); RDW Standard Deviation 43.4 fL (35.1-46.3); Red Blood Cell Count 4.57 M/mm3 (3.80-5.20); White Blood Cell Count 6.63 K/mm3 (4.00-11.30)
[2022-05-26 00:59] LABS: Source, Urine Foley catheter
[2022-05-26 01:00] LABS: Bilirubin, Urine Neg (Neg); Blood, Urine 2+ (Neg); Glucose Qualitative, Urine Neg (Neg); Ketones, Urine 2+ (Neg); Leukocyte Esterase, Urine Neg (Neg); Nitrite, Urine Neg (Neg); Protein, Urine 2+ (Neg); Specific Gravity, Urine 1.025 (1.003-1.022); Urobilinogen, Urine NORM (Normal)
[2022-05-26 01:06] LABS: Magnesium, Blood 2.4 mg/dL (1.6-2.4)
[2022-05-26 01:07] LABS: Appearance, Urine Hazy (Clear); Color, Urine Yellow (P-Yellow)
[2022-05-26 01:08] LABS: Amorphous Mod (0-Heavy); Bacteria Few /hpf; Granular Casts 0-2 /lpf (0); Mucus Mod (0-Heavy); Red Blood Cells, Urine 0-2 /hpf (0-2); Squamous Epithelial Cells Few /hpf (Few); White Blood Cells, Urine 0-2 /hpf (0-5)
[2022-05-26 01:10] LABS: Alanine Aminotransfer (ALT/SGP 25 U/L (12-78); Albumin, Blood 3.4 g/dL (3.4-5.0); Albumin/Globulin Ratio 0.9 (0.8-1.8); Alk Phos 59 U/L (50-136); Anion Gap Unable to Calculate mmol/L (6-16); Aspartate Aminotrans (AST/SGOT 25 U/L (12-37); Bilirubin, Total 0.3 mg/dL (0.1-1.0); Blood Urea Nitrogen 11 mg/dL (8-24); Bun/Creatinine Ratio 24.7 (12.0-20.0); CO2, Blood 44 mmol/L (21-32); Chloride, Blood 95 mmol/L (98-108); Creatinine, Blood 0.45 mg/dL (0.40-1.00); Globulin, Blood 3.6 g/dL (2.2-4.0); Glomerular Filtration Rate 107 (60-); Glucose, Blood 161 mg/dL (70-99); Potassium, Blood 5.4 mmol/L (3.5-5.5); Sodium, Blood 138 mmol/L (136-145)
[2022-05-26 01:21] LABS: U Amphetamine Screen Not Detected; U Barbituate Screen Not Detected; U Benzodiazapine Screen DETECTED; U Buprenorphine Screen Not Detected; U Cannabinoids Screen Not Detected; U Cocaine Screen Not Detected; U Methadone Screen Not Detected; U Methamphetamine Screen Not Detected; U Opiates Screen DETECTED; U Oxycodone Screen Not Detected; U Phencyclidine Screen Not Detected; U Propoxyphene Screen Not Detected
[2022-05-26 01:34] LABS: International Normalized Ratio 1.01; Prothrombin Time Results 10.6 Sec (9.7-11.5)
[2022-05-26 02:29] LABS: PCO2 Arterial 69.5 mmHg (35-45); PO2 Arterial 112 mmHg (80-100); pH Blood Arterial 7.33 (7.35-7.45)
[2022-05-26 05:17] LABS: PCO2 Arterial 52.2 mmHg (35-45); PO2 Arterial 129 mmHg (80-100); pH Blood Arterial 7.46 (7.35-7.45)
--- NOTE | 2022-05-26 05:50 | NUR ---
ARRIVAL TO ICU 11 PT INTUBATED AND SEDATED. CURRENT VENT SETTINGS AC/VC 16/400/5/30%. FENTANYL, PROPOFOL, LEVOPHED AND VASOPRESSIN GTT INFUSING. SEE FLOWSHEET FOR TITRATIONS. PT OPENS EYES TO NOXIOUS STIMULI. DOES NOT FOLLOW COMMANDS. SR RATE 60'S. SBP 90'S. ONE RUN OF SVT NOTED AND SAVED TO CHART. OTHER VSS. OGT TO LIS. KHAN PATENT AND DRAINING TO GRAVITY. FAMILY AT BEDSIDE AFTER ARRIVAL. FAMILY NOT AWARE OF PT'S MEDICATIONS OR COMPLETE MEDICAL HISTORY.
[2022-05-26 05:51] LABS: BASOPHILS ABSOLUTE AUTO 0.01 K/mm3 (0.00-0.23); BASOPHILS PERCENT AUTO 0 % (0-2); EOSINOPHILS PERCENT AUTO 0 % (0-6); Hematocrit 36.7 % (33.0-51.0); IMMATURE GRAN ABSOLUTE AUTO 0.02 K/mm3 (0.00-0.10); IMMATURE GRAN PERCENT AUTO 0 % (0-1); LYMPHOCYTES ABSOLUTE AUTO 0.16 K/mm3 (0.84-5.20); LYMPHOCYTES PERCENT AUTO 2 % (21-46); MONOCYTES ABSOLUTE AUTO 0.29 K/mm3 (0.16-1.47); MONOCYTES PERCENT AUTO 4 % (4-13); Mean Corpuscular HGB Conc 32.7 g/dL (31.5-36.5); Mean Corpuscular Volume 92 fL (80-100); Mean Platelet Volume 9.7 fL (9.1-12.4); NEUTROPHILS ABSOLUTE AUTO 7.74 K/mm3 (1.96-9.15); NEUTROPHILS PERCENT AUTO 94 % (41-73); Platelet Count 142 K/mm3 (150-400); RDW Coefficient Variation 12.5 % (11.7-14.2); RDW Standard Deviation 42.4 fL (35.1-46.3); White Blood Cell Count 8.22 K/mm3 (4.00-11.30)
[2022-05-26 06:08] LABS: Bun/Creatinine Ratio 27.8 (12.0-20.0); Calcium, Blood 8.4 mg/dL (8.5-10.1); Creatinine, Blood 0.54 mg/dL (0.40-1.00); Potassium, Blood 4.2 mmol/L (3.5-5.5)
--- NOTE | 2022-05-26 07:44 | NUR ---
ASSUMED CARE BEDSIDE REPORT FROM DOTTIE LUNA AT 0700. PT INTUBATED AND SEDATED. VENT SETTINGS AC/VC+ 16/400/0.8/5/30%. LUNGS DIM, WHEEZES IN LEFT LOBE. SCANT PINK SECRETIONS FROM ETT. COUGH/GAG/SWALLOW REFLEX PRESENT, SPONT OPENS EYES, PULLS ON RESTRAINTS, DOES NOT FOLLOW COMMANDS. PROPOFOL AND FENTANYL GTT FOR PAIN AND SEDATION. RASS -1. PUPILS 2 MM, REACTIVE. SR, RATE 70, INCREASES TO 130'S DURING AGITATION, ST. LEVO AND VASO GTT FOR MAP>65, SEE FLOW SHEET. PT P/W/D. ABD ROUND, SOFT, NON TENDER, HYPOACTIVE BT. OGT TO LIS. BROWN EMESIS OUT. TEMP PROBE KHAN PATENT, DRAINING TO GRAVITY. CVC TO RIGHT GROIN, 2 CM OUT, SUTURED IN PLACE. SWELLING/EDEMA NOTED TO LFOOT TO ANKLE, WARM, PULSES PAL. WILL CONTINUE TO MONITOR.
[2022-05-26 11:17] LABS: Magnesium, Blood 1.9 mg/dL (1.6-2.4); Phosphorus, Blood 1.4 mg/dL (2.5-4.9)
[2022-05-26 11:39] LABS: Base Excess Venous 12.4 mmol/L; Bicarbonate Venous 33.2 mmol/L (24.0-30.0); PCO2 Venous 71.3 mmHg (38-42); pH Blood Venous 7.34 (7.34-7.37)
[2022-05-26] MEDS ORDERED: OXYB5 (16:28)
--- NOTE | 2022-05-26 17:13 | NUR ---
SHIFT SUMMARY PT REMAINS INTUBATED AND SEDATED. VENT SETTINGS AC/VC+ 14/400/0.8/5/30%. LUNGS CLEAR ON RIGHT, EXP WHEEZES ON LEFT. SCANT MCCULLOUGH SECRETIONS FROM ETT. PROPOFOL AND FENTANYL GTT FOR PAIN AND SEDATION. PT MOSTLY REST, OCCASIONALLY SITS UP, PULLS ON RESTRAINTS. ATIVAN PRN. NO GAG OR SWALLOW, COUGH REFLEX PRESENT. OPENS EYES SPONT. PT HAD RUNS OF TACHYCARDIA THIS AM, 120-150'S. EKG DONE, SHOWN TO MD. AFTER CT AT 1200, PT BEGAN HAVING BRADYCARDIA, RATE 45-55. DR AGUIAR AWARE. CONTINUES ON LEVOPHED FOR MAP>65. ABD ROUND, SOFT, NON TENDER, BT X 4. OGT TO LIS. KHAN PATENT, DRAINING ANDREW, CLOUDY URINE TO GRAVITY. CVC TO RIGHT GROIN, DRESSING C/D/I. WILL CONTINUE TO MONITOR UNTIL REPORT TO ONCOMING NURSE.
--- NOTE | 2022-05-26 20:20 | NUR ---
ASSUMED CARE ASSUMED CARE AT 1900. PT INTUBATED AND SEDATED. AC/VC 14/400/5/30%. 25CM AT TEETH. LEVOPHED GTT, PROPOFOL GTT AND FENTANYL VACUUM DRIER TENDER INFUSING. SEE FLOWSHEET FOR TITRATIONS. PT RESTLESS AT TIMES, SITTING UP AND LEANING FORWARD. NOT FOLLOWING COMMANDS OR TRACKING. SR RATE 60-80'S. TEMP 100.5, BLANKET/SHEETS REMOVED AND FAN ON PT. OTHER VSS. OGT TO LIS, YELLOW GREEN OUTPUT. KHAN PATENT AND DRAINING TO GRAVITY.
--- NOTE | 2022-05-26 22:00 | NUR ---
OGT OGT SLIPPED OUT DURING BATH. NEW OGT PLACED, GASTRIC CONTENTS ASPIRATED, STAT CHEST XR DONE, AND PLACEMENT CONFIRMED BY HOSP. OGT BACK TO LIS. NOTIFIED HOSP OF POSITIVE BLOOD CULTURES. NO NEW ORDERS.
[2022-05-27 01:08] LABS: BASOPHILS ABSOLUTE AUTO 0.01 K/mm3 (0.00-0.23); BASOPHILS PERCENT AUTO 0 % (0-2); EOSINOPHILS PERCENT AUTO 0 % (0-6); Hematocrit 33.1 % (33.0-51.0); Hemoglobin 11.1 g/dL (11.5-16.0); IMMATURE GRAN ABSOLUTE AUTO 0.04 K/mm3 (0.00-0.10); IMMATURE GRAN PERCENT AUTO 0 % (0-1); LYMPHOCYTES PERCENT AUTO 3 % (21-46); MONOCYTES ABSOLUTE AUTO 0.43 K/mm3 (0.16-1.47); MONOCYTES PERCENT AUTO 5 % (4-13); Mean Corpuscular HGB 30.2 pg (26.0-34.0); Mean Corpuscular HGB Conc 33.5 g/dL (31.5-36.5); Mean Corpuscular Volume 90 fL (80-100); NEUTROPHILS ABSOLUTE AUTO 8.41 K/mm3 (1.96-9.15); NEUTROPHILS PERCENT AUTO 92 % (41-73); Platelet Count 139 K/mm3 (150-400); RDW Coefficient Variation 12.5 % (11.7-14.2); RDW Standard Deviation 41.3 fL (35.1-46.3); Red Blood Cell Count 3.67 M/mm3 (3.80-5.20); White Blood Cell Count 9.19 K/mm3 (4.00-11.30)
[2022-05-27 01:33] LABS: Anion Gap 2 mmol/L (6-16); Blood Urea Nitrogen 13 mg/dL (8-24); CO2, Blood 36 mmol/L (21-32); Calcium, Blood 8.3 mg/dL (8.5-10.1); Chloride, Blood 98 mmol/L (98-108); Creatinine, Blood 0.48 mg/dL (0.40-1.00); Glomerular Filtration Rate 106 (60-); Glucose, Blood 186 mg/dL (70-99); Potassium, Blood 3.5 mmol/L (3.5-5.5); Sodium, Blood 136 mmol/L (136-145); Thyroid Stimulating Hormone 0.918 uIU/mL (0.360-4.800); Vancomycin, Trough 9.9 ug/mL (5.0-10.0)
[2022-05-27 03:03] LABS: Phosphorus, Blood 2.9 mg/dL (2.5-4.9)
--- NOTE | 2022-05-27 06:01 | NUR ---
SBT/SHIFT SUMMARY PROPOFOL TITRATED DOWN TO STANDBY. PT AWAKE LEANING FORWARD AND KICKING LEGS OFF SIDE OF BED. PT NOT FOLLOWING COMMANDS OR TRACKING. RT IN ROOM. SEE RT NOTES FOR VENT SETTINGS. APPROX 10 MINS AFTER STARTING SBT, RR 30'S, TV 200-300, AND PT INCREASINGLY AGITATED. SPO2 TO 86%. PT SWITCHED BACK TO PREVIOUS VENT SETTINGS AND PROPOFOL TITRATED BACK UP. NO ACUTE EVENTS T/O NIGHT. MAX TEMP 100.5. LEVOPHED GTT INFUSING TO KEEP MAP ABOVE 65. SR/SB W/ PAC'S 48-80'S T/O NIGHT. OGT TO LIS. KHAN PATENT AND DRAINING TO GRAVITY.
--- NOTE | 2022-05-27 07:53 | NUR ---
ASSUMED CARE BEDSIDE REPORT FROM DOTTIE LUNA AT 0700. PT INTUBATED AND SEDATED. VENT SETTINGS AC/VC+ 14/400/0.8/5/30%. LUNGS CLEAR ON RIGHT, EXP WHEEZES ON LEFT. SCANT THICK MCCULLOUGH SECRETIONS FROM ETT. PROPOFOL AND FENTANYL FOR SEDATION. PT VARIES FROM RASS -4-+2 s ADJUSTMENTS TO PROPOFOL. COUGH/GAG/SWALLOW REFLEX, OPENS EYES SPONT, DOES NOT FOLLOW COMMANDS. MAEW. SR, RATE 70-80'S c OCCASIONAL BRADYCARDIA, LEVO FOR MAP >65. ABD ROUND, SOFT, NON TENDER, BT X 4. OGT TO LIS. CVC TO RIGHT GROIN, DRESSING C/D/I. 2 CM OUT. KHAN PATENT, DRAINING ANDREW CLOUDY URINE TO GRAVITY. WILL CONTINUE TO MONITOR.
--- NOTE | 2022-05-27 17:31 | NUR ---
SHIFT SUMMARY NO ACUTE CHANGES THIS SHIFT. REMAINS INTUBATED AND SEDATED. VENT SETTINGS AC/VC+ 14/400/0.8/5/40%. LUNGS CLEAR ON RIGHT, EXP WHEEZES ON LEFT. SCANT SECRETIONS FROM ETT. RASS CONTINUES TO VARY FROM +2--4, ATIVAN PRN. PROPOFOL AND FENTANYL FOR SEDATION AND PAIN. NO SBT PER DR AGUIAR THIS SHIFT SINCE SHE WAS ON UNIT FOR AM SBO. SR, RATE 70'S. PT HAD TWO EPISODES OF TACHYCARDIA, NO BRADYCARDIA NOTED. LEVO ON STANDBY, MAP>65. TUBE FEEDS STARTED, JEVITY 1.2 ML/HR c 30 ML FLUSH q4 HR. DIETARY CONSULT PENDING. OGT ADVANCED [address] AGUIAR. KHAN PATENT, DRAINED 300 ML CLOUDY ANDREW URINE TO GRAVITY. PT AFEBRILE. CVC TO RIGHT GROIN. WILL CONTINUE TO MONITOR UNTIL REPORT TO ONCOMING NURSE.
--- NOTE | 2022-05-27 19:29 | NUR ---
ASSUMED CARE OF PT AT 1900 PT STABLE AT THIS TIME. BUE RESTRAINTS ON AT THIS TIME. VENTED AND SEDATE. PT UNAROUSABLE. PLEASE SEE FULL ASSESSMENT FOR FURTHER INFORMATION.
[2022-05-28 04:02] LABS: BASOPHILS PERCENT AUTO 0 % (0-2); EOSINOPHILS PERCENT AUTO 0 % (0-6); Hematocrit 33.9 % (33.0-51.0); Hemoglobin 11.2 g/dL (11.5-16.0); IMMATURE GRAN ABSOLUTE AUTO 0.02 K/mm3 (0.00-0.10); IMMATURE GRAN PERCENT AUTO 0 % (0-1); LYMPHOCYTES ABSOLUTE AUTO 0.41 K/mm3 (0.84-5.20); LYMPHOCYTES PERCENT AUTO 6 % (21-46); MONOCYTES PERCENT AUTO 5 % (4-13); Mean Corpuscular HGB 30.2 pg (26.0-34.0); Mean Corpuscular Volume 91 fL (80-100); Mean Platelet Volume 9.6 fL (9.1-12.4); NEUTROPHILS ABSOLUTE AUTO 5.71 K/mm3 (1.96-9.15); NEUTROPHILS PERCENT AUTO 89 % (41-73); Platelet Count 123 K/mm3 (150-400); RDW Standard Deviation 43.8 fL (35.1-46.3); Red Blood Cell Count 3.71 M/mm3 (3.80-5.20); White Blood Cell Count 6.44 K/mm3 (4.00-11.30)
[2022-05-28 04:20] LABS: Bun/Creatinine Ratio 40.9 (12.0-20.0); Calcium, Blood 8.3 mg/dL (8.5-10.1); Creatinine, Blood 0.54 mg/dL (0.40-1.00); Potassium, Blood 3.8 mmol/L (3.5-5.5)
--- NOTE | 2022-05-28 06:02 | NUR ---
END OF SHIFT SUMMARY PT INTUBATED AND SEDATED. NO VISITORS THIS SHIFT. GUARDED AND STIFF WHEN REPOSITIONED. RANDOM BOUTS OF TRYING TO SIT UP IN BED WITHOUT ADJUSTMENTS TO SEDATION. DOES NOT FOLLOW COMMANDS. CARDIAC- SR BASELINE. HAS INTERMITENT EPISODES OF TACHY AND AT OTHERS WILL ELSY DOWN TO 45. LEVO ON STANDY THIS AM. SBP 90'S. SIGNIFICANT SWELLING GAMALIEL AND BLE. RESP- AC/VC 14/400/5/35% GI,- NO BM THIS SHIFT. TEMP KHAN DRAINING TO GRAVITY WITH 200 MLS URINE OUT THIS SHIFT. URINE IS NOW DARK YELLOW. PROP AT 40 TKO 10 TF 25 IV IN FIGHT FOREARM REMOVED DO TO NOT BEING PATENT. WILL CONTINUE TO MONITOR UNTIL REPORT GIVEN TO AM RN..
--- NOTE | 2022-05-28 07:30 | NUR ---
ASSUMED CARE OF YENNY AT 0700, SHE IS ON THE VENTILATOR 14/400/5/35%, SATS MID 90'S. BP STABLE OFF PRESSORS. PROPOFOL INFUSING AT 40MCG, FENTANYL GTT CONTINUOUS AT 50MCG/HR. PT WITH DISCONJUGATE GAZE, RIGHT EYE RIGHTWARD APPEAR ING WHILE THE LEFT IS FORWARD FACING. NO ENGAGEMENT OR FOCUS. EYES CRUSTY, WARM WATER COMPRESSES PLACED ON THEM AND CLEANED. ORAL CARE COMPLETED. KHAN CARE COMPLETED. REPOSITIONED WITH LIFT. PT MOVED LEFT ARM BUT NOT TO COMMAND, NOR TO THE TUBE. PT MOVES LEGS SOME. PT DOES A SIT UP, NOTHING PURPOSEFUL NOTED AT THAT TIME. HANDS EDEMATOUS, FEET SLIGHTLY. HAIR WASHED AND BRAIDED OUT OF HER WAY.
--- NOTE | 2022-05-28 12:52 | NUR ---
YENNY HAS BEEN OPENING HER EYES MORE, CONTINUES WITHOUT FOCUS OR AWARENESS. LEFT EYE MORE THAN RIGHT. DAUGHTER AT BEDSIDE, NO EVIDENCE OF RESPONSE TO HER EITHER. PT CONTINUES BREATHING WITH THE VENTILATOR. SECRETIONS SCANT. BP REMAINS STABLE OFF PRESSORS.
--- NOTE | 2022-05-28 14:16 | NUR ---
JULIA AWAKENS AT 1400, COMMENTS THAT HE WAS ABLE TO SLEEP WELL. ASKS FOR SOME MAGALI JASVIR, HAND BRUSH FILLER IN TO SPEAK WITH HIM.
--- NOTE | 2022-05-28 14:29 | NUR ---
YENNY REMAINS VERY STIFF AND INFLEXIBLE WITH MOVEMENTS. WHEN TURNING AND TRYING TO DO ROM, PT IS VERY RESISTANT. DAUGHTER HAS TRIED TO DO SOME MASSAGE TO HER ARMS AND NECK. SHE REMAINS VERY STIFF. THE DAUGHTERS ARE EXPRESSING DIFFERENT DESIRES FOR THE PLAN OF CARE FOR THEIR MOTHER. ONE (THE YOUNGER ONE, WHO LIVES OUT OF TOWN) IS EAGER FOR CLOSURE AND ALLOWING HER MOM TO PASS NATURALLY. THE OLDER (WHO LIVES NEARBY) WANTS TO SEE HOW THINGS PROGRESS BEFORE GOING TO COMFORT MEASURES. BORING MACHINE OPERATOR HORIZONTAL MET WITH THE GALS AND SHARED WITH THEM.
--- NOTE | 2022-05-28 15:09 | NUR ---
Spiritual care visit conducted. Upon being contacted by patient's RN Taniya, I visited the patient. I sit with dtr s Teresa and Katie. They explain about the tension they are feeling with their stepfather, Luis Antonio, for not following the pt's wishes for DNI/DNR. They also talk about the concerns to prolong suffering for the patient and not have her medical desires in alignment with what Luis Antonio is continuing to request (full Aggressive care). We talk about ways to approach discussions with Luis Antonio, and also ways to give each other space and paris and work toward unity within the family (which was also the patient's wishes). I conduct a life review of patient, explore family spiritual beliefs, normalize their feelings and provide prayer. Family responded well and showed signs of increased peace and patience. I will continue to remain available to patient and family.
--- NOTE | 2022-05-28 17:53 | NUR ---
PT CONTINUES ON VENTILATOR 14/400/5/35%. SATS MAINTAIN AT MID 90'S. HEART RATE VARIES MOSTLY SINUS, THE LAST COUPLE HOURS SINUS ELSY. BP REMAINS STABLE. FEET AND ANKLES, HANDS AND ARMS WITH EDEMA. LUNGS WITH EXP WHEEZE/RUB. PROPO- FOL @ 40MCG/KG, FENTANYL @ 50MCG/HR, NS TKO x2. VANCO GIVEN AND ZOSYN X 2 THIS SHIFT. TUBE FEEDINGS JEVITY @ 25ML WITH 30ML H20 FLUSHES. URINE TEA COLORED < 500ML THIS SHIFT. NO BM. PT CONTINUES VERY STIFF WITH ANY MOVEMENT, EYES WILL OPEN WITH TURNING, L>R, NO TRACKING OR FOCUSING. NO COMMANDS FOLLOWED. NO EVIDENCE OF PURPOSEFUL MOVEMENT. ARMS WITH REFLEX UP TO CHEST BUT DOESN'T LOOK TO BE PULLING AT THE TUBE WHEN UNRESTRAINED. DID MOVE BOTH LEGS INDEPENDENTLY TODAY, NOT TO COMMAND. DAUGHTERS REMAIN AT ODDS WITH HOW THE PLAN OF CARE SHOULD BE, NOT IN TODAY.
[2022-05-29 01:25] LABS: BASOPHILS PERCENT AUTO 0 % (0-2); EOSINOPHILS PERCENT AUTO 0 % (0-6); Hematocrit 33.6 % (33.0-51.0); Hemoglobin 10.9 g/dL (11.5-16.0); IMMATURE GRAN ABSOLUTE AUTO 0.01 K/mm3 (0.00-0.10); IMMATURE GRAN PERCENT AUTO 0 % (0-1); LYMPHOCYTES ABSOLUTE AUTO 0.28 K/mm3 (0.84-5.20); LYMPHOCYTES PERCENT AUTO 5 % (21-46); MONOCYTES ABSOLUTE AUTO 0.39 K/mm3 (0.16-1.47); MONOCYTES PERCENT AUTO 6 % (4-13); Mean Corpuscular HGB 29.8 pg (26.0-34.0); Mean Corpuscular HGB Conc 32.4 g/dL (31.5-36.5); Mean Corpuscular Volume 92 fL (80-100); Mean Platelet Volume 9.9 fL (9.1-12.4); NEUTROPHILS ABSOLUTE AUTO 5.51 K/mm3 (1.96-9.15); NEUTROPHILS PERCENT AUTO 89 % (41-73); Platelet Count 137 K/mm3 (150-400); Red Blood Cell Count 3.66 M/mm3 (3.80-5.20); White Blood Cell Count 6.19 K/mm3 (4.00-11.30)
[2022-05-29 01:47] LABS: Magnesium, Blood 2.8 mg/dL (1.6-2.4)
[2022-05-29 01:53] LABS: Albumin, Blood 2.8 g/dL (3.4-5.0); Anion Gap Unable to Calculate mmol/L (6-16); Blood Urea Nitrogen 25 mg/dL (8-24); Bun/Creatinine Ratio 48.5 (12.0-20.0); CO2, Blood 39 mmol/L (21-32); Calcium, Blood 8.1 mg/dL (8.5-10.1); Chloride, Blood 100 mmol/L (98-108); Creatinine, Blood 0.52 mg/dL (0.40-1.00); Glomerular Filtration Rate 104 (60-); Glucose, Blood 187 mg/dL (70-99); Phosphorus, Blood 3.1 mg/dL (2.5-4.9); Potassium, Blood 4.2 mmol/L (3.5-5.5); Sodium, Blood 137 mmol/L (136-145); Vancomycin, Trough 12.7 ug/mL (5.0-10.0)
--- NOTE | 2022-05-29 04:30 | NUR ---
SBT SEDATION WAS NOT PUT ON HOLD DUE TO THE PATIENTS NEED FOR INCREASE. PT AT 40 MCG MOST OF THE NIGHT UNTIL 0430 WHEN PT WAS OVER BREATHING VENT AND CAUSING DESAT TO LOW 80'S RESP THERAPY WAS NOTIFIED OF THE SITUATION. PROPOFOL INCREASED TO 50 MCG. WILL CONTINUE TO MONITOR.
--- NOTE | 2022-05-29 05:52 | NUR ---
CALLED RT TO PT ROOM DUE TO ALARMING VENT. PT CHEST CREPITOUS AND SWOLLEN. AB PEDIATRIC PSYCHOLOGIST IN ROOM WITH THIS RN. STAT CHEST XRAY ORDERED. DR ALARCON AND DR DURHAM NOTIFIED OF PT CHANGES.
--- NOTE | 2022-05-29 06:25 | NUR ---
DR DURHAM IN ROOM FOR CHEST TUBE INSERTION.
--- NOTE | 2022-05-29 06:42 | NUR ---
END OF SHIFT SUMMARY PT DID NOT FOLLOW COMMANDS. NOTHING NEW FROM PRIOR ASSESSMENTS. NO VISITORS THIS SHIFT. PLEASE SEE DOCUMENTATION FOR ALL VITALS AND OTHER ASSESSMENT INFORMATION.
--- NOTE | 2022-05-29 08:40 | NUR ---
AM NOTE... ASSUMED CARE OF PT AT 0700, AT THE START OF THIS SHIFT HAD JUST PLACED A LARGE BORE CHEST TUBE TO THE PT'S RIGHT LATERAL CHEST WALL. THIS WAS PLACED TO -20 SUCTION WITH BUBBLING BUT NO FLUCTUATION NOTED. CHEST XRAY CONFIRMED PLACEDMENT. THIS RN AND THE INVESTIGATIVE AGENT WERE IN THE ROOM GETTING THE PT REPOSITIONED THE BUBBLING STOPPED AND THE PT'S UPPER CHEST WALL STARTED TO SWELL WITH INCREASED CREPITUS. ANOTHER CHEST XRAY WAS ORDERED AND OBTAINED, THE CHEST TUBE IS VERY POSITIONAL PER DR. DURHAM, THE SITE WAS RE-DRESSED BY THE INVESTIGATIVE AGENT, BUBBLING IS NOW NOTED IN THE CHAMBER STILL NO FLUCUTATION. DURING THIS TIME THE PT WAS VERY AGITATED SITTING UP IN THE BED, LIMBS WERE VERY STIFF, PROPOFOL WAS RUNNING AT 40MCG/KG AND FENTANY CULLET WASHER AT 50MCG/HG. PROPOFOL WAS INCREASED TO 60MCG/KG AND 2MG IV VERSED WAS GIVEN. DURING THIS TIME THE PT'S HR WAS IN THE 120'S-130'S BP WAS HYPERTENSIVE. CURRENTLY THE PT IS SR IN THE 80'S, BP IS STABLE WITH MAPS >75. 1+ EDEMA IS NOTED TO HER LLE. L/S ABSENT ON THE RIGHT DIM WITH EXP WHEEZES ON THE LEFT. A LARGE AMOUNT OF CREPITUS IS NOTED TO THE RIGHT UPPER CHEST WALL. OG TUBE IS PATENT AND RUNNING TUBE FEEDS PER ORDERS. BT PRESENT AND HYPOACTIVE, ABD IS SOFT TO PALPATION. TEMP KHAN IN PLACE DRAINING DARK YELLOW URINE WITH SEDIMENT TO GRAVITY. WILL CONTINUE TO MONITOR
--- NOTE | 2022-05-29 11:08 | NUR ---
Multiple visits this AM. Family has elected to pursue comfort care for Pt. Offered supportive visits and therapeutic listening. Encouraged family to re-assure Pt and offer gentle touch. Pt resting comfortably at this time. Palliative Care will remain available
--- NOTE | 2022-05-29 11:58 | NUR ---
PT UPDATE.... FAMILY CAME IN APROX 0900 AND DECIDED TO MAKE THE PT COMFORT CARE. DR. DURHAM AT THE BEDSIDE AND SPOKE WITH THE PT'S AND FAMILY. PT WAS MADE COMFORT CARE AT 0904. THE PT WAS PRE-MEDICATED PRIOR TO EXTUBATION, SHE WAS EXTUBATED AT 1021 THE PT PASSED AT 1107. ALL OF PT'S BELONGINGS WERE SENT WITH THE PT'S FAMILY.
--- NOTE | 2022-05-29 12:42 | NUR ---
Spiritual care visit conducted. I have several visits with the family today, before, during and after extubation. Family struggled emotionally with the patient's agonal breathing and sounds. I gather the home information (Rosalba's) and I provide prayer several times, as well, before extubation and just after TOD. Family responded well and showed signs of being comforted.
== END 2022-05-29 13:09 | DRG 871 ==
LOC: ER 00:35 → ICUW 00:36
PROVIDERS: Family Medicine; Internal Medicine Critical Care Medicine; Student in an Organized Health Care Education/Training Program; ADMIT Internal Medicine
PROC: 0DH67UZ Insertion of Feeding Device into Stomach, Via Natural or Artificial Opening (ICD-10-PCS; principal; 2022-05-26)
PROC: 3E033XZ Introduction of Vasopressor into Peripheral Vein, Percutaneous Approach (ICD-10-PCS; 2022-05-26)
PROC: 4A033R1 Measurement of Arterial Saturation, Peripheral, Percutaneous Approach (ICD-10-PCS; 2022-05-26)
PROC: 3E03329 Introduction of Other Anti-infective into Peripheral Vein, Percutaneous Approach (ICD-10-PCS; 2022-05-26)
PROC: 5A1945Z Respiratory Ventilation, 24-96 Consecutive Hours (ICD-10-PCS; 2022-05-26)
PROC: 0BH17EZ Insertion of Endotracheal Airway into Trachea, Via Natural or Artificial Opening (ICD-10-PCS; 2022-05-26)
PROC: 0T9B70Z Drainage of Bladder with Drainage Device, Via Natural or Artificial Opening (ICD-10-PCS; 2022-05-26)
PROC: 06HY33Z Insertion of Infusion Device into Lower Vein, Percutaneous Approach (ICD-10-PCS; 2022-05-26)
PROC: 0W9930Z Drainage of Right Pleural Cavity with Drainage Device, Percutaneous Approach (ICD-10-PCS; 2022-05-29)
DX: A41.1 Sepsis due to other specified staphylococcus (principal); J96.21 Acute and chronic respiratory failure with hypoxia; R65.21 Severe sepsis with septic shock; J96.22 Acute and chronic respiratory failure with hypercapnia; J93.9 Pneumothorax, unspecified; I47.1 Supraventricular tachycardia; E87.29 Other acidosis; Z51.5 Encounter for palliative care; Z66 Do not resuscitate; F41.9 Anxiety disorder, unspecified; E03.9 Hypothyroidism, unspecified; J43.9 Emphysema, unspecified; J40 Bronchitis, not specified as acute or chronic; R45.1 Restlessness and agitation; E78.00 Pure hypercholesterolemia, unspecified; F17.210 Nicotine dependence, cigarettes, uncomplicated; I10 Essential (primary) hypertension; Z88.8 Allergy status to other drugs, medicaments and biological substances; Z79.899 Other long term (current) drug therapy; Z79.891 Long term (current) use of opiate analgesic; Z79.51 Long term (current) use of inhaled steroids; Z79.52 Long term (current) use of systemic steroids; Z79.2 Long term (current) use of antibiotics; Z87.19 Personal history of other diseases of the digestive system; Z87.442 Personal history of urinary calculi; Z98.890 Other specified postprocedural states; Z99.81 Dependence on supplemental oxygen
CPT/HCPCS: 32551; 36415; 36556; 36600; 51702; 70450; 71045; 71260; 80048; 80053; 80069; 80202; 81001; 82803; 83605; 83735; 83880; 84100; 84132; 84443; 84484; 85025; 85379; 85610; 87040; 87077; 93005; 93010; 93306; 94002; 94003; 94640; 94644; 94664; 96365-59; 96366-59; 96367-59; 96368; 99291-25; A9270; C1751; C9113; J1630; J1650; J2060; J2250; J2270; J2370; J2543; J2704; J2930; J3010; J3370; J7030; J7050; J7060; J7120; Q9967